=== PATIENT | female | born 1990 | race Caucasian/White ===

== ENCOUNTER 2016-06-24 07:28 | Emergency (ER) | payer OTHER ==
[~2016-06-24] VITALS: Wt 65.0 kg
[2016-06-24] MEDS ORDERED: ACETAMINOPHEN 500 MG TAB PO STA (07:57)
[2016-06-24] MEDS ORDERED: OSLT75C PO (07:58)
--- NOTE | 2016-06-24 08:02 | ERD ---
ER Documentation Chief Complaint Date/Time DATE: 06/24/16 TIME: 08:00 Chief Complaint COUGH, THROAT PAIN, HEADACHE, FEVER HPI 26 year old female comes in with cough, sore throat, left ear pain, headache, fever, nausea and vomiting, diarrhea x 1 day. She states she tried taking Motrin prior to coming around 2 hours ago. No travel. Symptoms started yesterday. ROS All systems reviewed and are negative except as per history of present illness. Medications Home Meds Active Scripts Oseltamivir Phosphate* (Tamiflu*) 75 Mg Capsule, 75 MG PO BID for 5 Days, CAP Prov:RADHA DEMARCO PA-C 06/24/16 Physical Exam Vitals Vital Signs Date Time Temp Pulse Resp B/P Pulse Ox O2 Delivery O2 Flow Rate FiO2 06/24/16 07:34 101.3 82 18 126/68 98 Physical Exam General: Well-developed, well-nourished. The patient appears in no acute distress. HEENT: Head is normocephalic, atraumatic. No scleral icterus. Pupils are equal , round, and reactive. Oral mucous membranes are moist. No pharyngeal erythema. Neck: Supple. Nontender. Lungs: Clear to auscultation. Normal air movement. Heart: Regular rate and rhythm. S1 and S2 are normal. No murmurs, gallops, or rubs. Abdomen: Soft, nontender, nondistended. Bowel sounds are normoactive. Extremities: No clubbing or cyanosis. Normal pulses. Moving extremities x 4. No weakness. Neurologic: Alert and oriented 3. No focal deficits. Skin: Normal turgor. No rash or lesions. Results 24 hrs Current Medications Medications (Trade) Dose Ordered Sig/Darwin Route PRN Reason Start Time Stop Time Status Last Admin Dose Admin Acetaminophen (Tylenol Tab) 1,000 mg ONCE STAT PO 06/24/16 07:57 06/24/16 07:58 DC Procedures/MDM ED course: She was given Tylenol 1 g. MDML The patient is a 26 yo female who comes in with flu like symptoms. The patient has a differential diagnosis of a viral upper respiratory infection, bacterial upper respiratory infection, bronchitis, pneumonia, pharyngitis, laryngitis, epiglottitis, croup, pneumonia. Patient has a normal pulmonary examination, clear breath sounds, normal pulse oximetry, with no corrective measures needed at this time. Fluids, rest, antipyretics were encouraged. Departure Diagnosis: Primary Impression: Viral syndrome Condition: Good Patient Instructions: Viral Syndrome (Child) Additional Instructions: Llame al doctor MAANA y sharla farrukh RAJINDER PARA DENTRO DE 1-2 GONZALES.Dgale a la secretaria que nosotros le instruimos hacer esta rajinder.Avise o llame si landin condicin se empeora antes de la rajinder. Regresa aqui si peor o no mejor. RADHA DEMARCO PA-C Jun 24, 2016 08:02
== END 2016-06-24 08:35 | disposition home or self-care (01) ==
LOC: FTE 07:28
DX: B34.9 Viral infection, unspecified (principal)
CPT/HCPCS: Z7502; Z7610; 99283